=== PATIENT | female | born 1955 | race African-American/Black ===

== ENCOUNTER → 2016-05-10 | Outpatient (CLI) | payer BC ==
[2016-05-10 10:11] LABS: ABSOLUTE EOSINOPHILS # (AUTO) 0.1 10^3/uL (0.0-0.6); ABSOLUTE LYMPHOCYTES (AUTO) 2.5 10^3/uL (0.5-4.7); ABSOLUTE MONOCYTES (AUTO) 0.9 10^3/uL (0.1-1.4); ABSOLUTE NEUT (AUTO) 4.8 10^3/uL (1.7-8.2); BASOPHILS % (AUTO) 0.6 % (0-2); EOSINOPHILS % (AUTO) 1.3 % (0-6); HEMATOCRIT 39.2 % (36.0-47.0); HEMOGLOBIN 13.1 g/dL (12.0-15.5); HGB HCT DIFFERENCE 0.1; MEAN CORPUSCULAR HEMOGLOBIN 27.4 pg (27.0-33.4); MEAN CORPUSCULAR HGB CONC 33.5 g/dL (32.0-36.0); MEAN CORPUSCULAR VOLUME 82 fl (80-97); MONOCYTES % (AUTO) 10.9 % (3-13); RED CELL DISTRIBUTION WIDTH 16.4 % (11.5-14.0); SEGMENTED NEUTROPHILS % (AUTO) 57.2 % (42-78); WHITE BLOOD COUNT 8.4 10^3/uL (4.0-10.5)
[2016-05-10 10:17] LABS: APPEARANCE,URINE SLIGHTLY-CLOUDY; BILIRUBIN,URINE NEGATIVE (NEGATIVE); GLUCOSE, URINE NEGATIVE (NEGATIVE); KETONES,URINE NEGATIVE (NEGATIVE); LEUKOCYTE ESTERASE,URINE NEGATIVE (NEGATIVE); NITRITE,URINE NEGATIVE (NEGATIVE); PROTEIN,URINE 30 mg/dL (NEGATIVE); URINE SPECIFIC GRAVITY 1.013; UROBILINOGEN,URINE NEGATIVE mg/dL (<2.0)
[2016-05-10 10:33] LABS: ALBUMIN 3.8 g/dL (3.5-5.0); ANION GAP 11 (5-19); BLOOD UREA NITROGEN 33 mg/dL (7-20); CALCIUM 9.6 mg/dL (8.4-10.2); CARBON DIOXIDE 30 mmol/L (22-30); CHLORIDE 102 mmol/L (98-107); CREATININE RESULT 1.69 mg/dL (0.52-1.25); GLUCOSE 94 mg/dL (75-110); POTASSIUM 4.6 mmol/L (3.6-5.0); SODIUM 142.7 mmol/L (137-145)
[2016-05-11 07:32] LABS: VITAMIN D 25-HYDROXY 46.1 ng/mL (30.0-100.0)
== END ==
LOC: OD 08:42
PROVIDERS: ATTEND Internal Medicine Nephrology
DX: N18.3 Chronic kidney disease, stage 3 (moderate) (principal); R80.9 Proteinuria, unspecified; E55.9 Vitamin D deficiency, unspecified
CPT/HCPCS: 36415; 80048; 81001; 82040; 82306; 83970; 84100; 85025

== ENCOUNTER → 2016-08-20 | Outpatient (CLI) | payer BC ==
[2016-08-20 09:18] LABS: ANION GAP 10 (5-19); BLOOD UREA NITROGEN 31 mg/dL (7-20); CALCIUM 10.1 mg/dL (8.4-10.2); CARBON DIOXIDE 31 mmol/L (22-30); CHLORIDE 102 mmol/L (98-107); CREATININE RESULT 1.75 mg/dL (0.52-1.25); GLUCOSE 95 mg/dL (75-110); POTASSIUM 4.5 mmol/L (3.6-5.0); SODIUM 143.1 mmol/L (137-145)
[2016-08-21 12:38] LABS: CREATININE URINE 68.5 mg/dL (Not Estab.)
== END ==
LOC: OD 08:03
PROVIDERS: ATTEND Internal Medicine Nephrology
DX: N18.3 Chronic kidney disease, stage 3 (moderate) (principal); E55.9 Vitamin D deficiency, unspecified; R80.9 Proteinuria, unspecified
CPT/HCPCS: 36415; 80048; 82306; 82570; 84156

== ENCOUNTER → 2016-11-21 | Outpatient (CLI) | payer BC ==
[2016-11-21 09:51] LABS: ANION GAP 12 (5-19); BLOOD UREA NITROGEN 31 mg/dL (7-20); CALCIUM 9.6 mg/dL (8.4-10.2); CARBON DIOXIDE 26 mmol/L (22-30); CHLORIDE 102 mmol/L (98-107); CREATININE RESULT 1.78 mg/dL (0.52-1.25); GLUCOSE 102 mg/dL (75-110); POTASSIUM 4.2 mmol/L (3.6-5.0); SODIUM 140.3 mmol/L (137-145)
[2016-11-21 13:59] LABS: URINE CREATININE 83.5 mg/dL (15-278); URINE PROTEIN 26.9 mg/dL (<12)
== END ==
LOC: OD 07:46
PROVIDERS: ATTEND Internal Medicine Nephrology
DX: N18.3 Chronic kidney disease, stage 3 (moderate) (principal); R80.9 Proteinuria, unspecified; E55.9 Vitamin D deficiency, unspecified
CPT/HCPCS: 36415; 80048; 82306; 82570; 84156

== ENCOUNTER 2017-06-08 22:09 | Observation (INO) | payer BC ==
--- NOTE | 2017-06-08 22:54 | ER Document Report ---
ED General - General Chief Complaint: Abdominal Pain Stated Complaint: STOMACH PAIN Time Seen by Provider: 06/08/17 22:53 Notes: Patient is a 61-year-old female who presents emergency department with chief complaint of sudden onset abdominal pain, nausea and vomiting after lunch today. Patient states that she ate some soup for lunch and about 30 minutes later she admits to sudden onset epigastric pain with nausea and vomiting. States that she still has her gallbladder. Denies any fevers or chills. She denies any previous similar symptoms. Past medical history significant for previous appendectomy, umbilical hernia repair, previous hysterectomy. Patient states that she does have a known left lower periumbilical hernia. She states that ever since she started throwing up that it is remained enlarged and not soft. She states that it does not hurt to touch. Past medical history significant for hypertension, hypothyroidism Past surgical history as above Social history: Denies any tobacco, alcohol or drug use PCP: Jovani TRAVEL OUTSIDE OF THE [place] IN LAST 30 DAYS: No - Related Data Allergies/Adverse Reactions: No Known Allergies Allergy (Verified 06/08/17 22:10) Past Medical History - Social History Smoking Status: Current Every Day Smoker Family History: Reviewed & Not Pertinent Patient has suicidal ideation: No Patient has homicidal ideation: No - Past Medical History Cardiac Medical History: Reports: Hx Hypertension Denies: Hx Coronary Artery Disease, Hx Heart Attack Pulmonary Medical History: Reports: Hx Pneumonia Denies: Hx Asthma, Hx Bronchitis, Hx COPD Neurological Medical History: Denies: Hx Cerebrovascular Accident, Hx Seizures Renal/ Medical History: Denies: Hx Peritoneal Dialysis Musculoskeltal Medical History: Denies Hx Arthritis Past Surgical History: Reports: Hx Appendectomy, Hx Hysterectomy. Denies: Hx Pacemaker Review of Systems - Review of Systems Constitutional: No symptoms reported Cardiovascular: No symptoms reported Respiratory: No symptoms reported Gastrointestinal: See HPI Genitourinary: No symptoms reported Musculoskeletal: No symptoms reported Neurological/Psychological: No symptoms reported -: Yes All other systems reviewed and negative Physical Exam - Vital signs Vitals: Temp Pulse Resp BP Pulse Ox 97.9 F 84 18 151/78 H 95 06/08/17 22:17 06/08/17 22:17 06/08/17 22:17 06/08/17 22:17 06/08/17 22:17 - Notes Notes: PHYSICAL EXAM GENERAL: Alert, interacts well. HEAD: Normocephalic, atraumatic. LUNGS: Clear to auscultation bilaterally, no wheezes, rales, or rhonchi. No respiratory distress. HEART: Regular rate and rhythm. No murmurs, gallops, or rubs. ABDOMEN: distended, mild epigastric tenderness. left lower periumbical hernia with active BS but nonreducible. No guarding, rebound, or rigidity..Hypoactive bowel sounds LLQ. EXTREMITIES: Moves all 4 extremities spontaneously. No edema, radial and dorsalis pedis pulses 2/4 bilaterally. No cyanosis. NEUROLOGICAL: Alert and oriented x4. Normal speech. PSYCH: Normal affect, normal mood. SKIN: Warm, dry, normal turgor. No rashes or lesions noted. Course - Re-evaluation Re-evalutation: 06/09/17 00:29 Patient is a 61-year-old female is hemodynamically stable, no acute distress and afebrile. Presentation concerning for small bowel obstruction versus incarcerated hernia. Patient states she is now pain free and nausea free after Toradol and Zofran. Acute abdomen does show concern for small bowel obstruction. Will send for CT of the abdomen and pelvis with p.o. contrast 06/09/17 04:11 Reviewed radiology results with Dr. Bedoya who states there is concern for a incarcerated hernia given that contrast was not able to pass her hernia. Will admit to surgery. Patient at this time stating that she has mild pain without nausea. 06/09/17 04:[address] Matthews for OR this AM - Vital Signs Vital signs: Temp Pulse Resp BP Pulse Ox 97.9 F 84 18 151/78 H 95 06/08/17 22:17 06/08/17 22:17 06/08/17 22:17 06/08/17 22:17 06/08/17 22:17 - Laboratory Result Diagrams: 06/08/17 23:25 06/08/17 23:25 Laboratory results interpreted by me: 06/08/17 06/08/17 06/09/17 23:25 23:25 01:00 WBC 11.0 H MCH 26.6 L RDW 16.6 H Seg Neutrophils % 78.4 H Absolute Neutrophils 8.7 H BUN 27 H Creatinine 1.70 H Est GFR ( Amer) 37 L Est GFR (Non-Af Amer) 30 L Glucose 121 H Calcium 10.5 H AST 49 H Alkaline Phosphatase 155 H Total Protein 8.3 H Urine Protein 30 H - Diagnostic Test Radiology reviewed: Image reviewed, Reports reviewed Discharge - Discharge Clinical Impression: SBO (small bowel obstruction), Hernia of abdominal cavity, with obstruction Condition: Stable Disposition: ADMITTED INPATIENT Admitting Provider: Surgicalist - Appresai Unit Admitted: Surgical Floor
[2017-06-08] MEDS ORDERED: KETOROLAC TROMETHAMINE INJ/PF 30 MG/1 ML SDV IV ONE (23:08)
[2017-06-08] MEDS ORDERED: ONDANSETRON HCL INJ/PF 4 MG/2 ML SDV IV ONE (23:08)
[2017-06-08] MEDS ORDERED: NORMAL SALINE 1000 ML 1,000 ML IV ONE (23:09)
[2017-06-08 23:39] LABS: ABSOLUTE BASOPHILS # (AUTO) 0.1 10^3/uL (0.0-0.2); ABSOLUTE LYMPHOCYTES (AUTO) 1.6 10^3/uL (0.5-4.7); ABSOLUTE MONOCYTES (AUTO) 0.7 10^3/uL (0.1-1.4); ABSOLUTE NEUT (AUTO) 8.7 10^3/uL (1.7-8.2); BASOPHILS % (AUTO) 0.7 % (0-2); EOSINOPHILS % (AUTO) 0.1 % (0-6); HEMATOCRIT 42.1 % (36.0-47.0); HEMOGLOBIN 13.9 g/dL (12.0-15.5); LYMPHOCYTES % (AUTO) 14.1 % (13-45); MEAN CORPUSCULAR HEMOGLOBIN 26.6 pg (27.0-33.4); MEAN CORPUSCULAR HGB CONC 32.9 g/dL (32.0-36.0); MEAN CORPUSCULAR VOLUME 81 fl (80-97); MONOCYTES % (AUTO) 6.7 % (3-13); PLATELET COUNT 272 10^3/uL (150-450); RED BLOOD COUNT 5.21 10^6/uL (3.72-5.28); RED CELL DISTRIBUTION WIDTH 16.6 % (11.5-14.0); SEGMENTED NEUTROPHILS % (AUTO) 78.4 % (42-78); TOTAL CELLS COUNTED % (AUTO) 100 %
[2017-06-08 23:58] LABS: ALANINE AMINOTRANSFERASE 19 U/L (9-52); ALBUMIN 4.5 g/dL (3.5-5.0); ALKALINE PHOSPHATASE 155 U/L (38-126); ANION GAP 10 (5-19); ASPARTATE AMINO TRANSFERASE 49 U/L (14-36); BILIRUBIN,DIRECT 0.3 mg/dL (0.0-0.4); BILIRUBIN,TOTAL 0.7 mg/dL (0.2-1.3); BLOOD UREA NITROGEN 27 mg/dL (7-20); CALCIUM 10.5 mg/dL (8.4-10.2); CARBON DIOXIDE 25 mmol/L (22-30); CHLORIDE 105 mmol/L (98-107); GLUCOSE 121 mg/dL (75-110); LIPASE 67.2 U/L (23-300); POTASSIUM 4.2 mmol/L (3.6-5.0); SODIUM 140.4 mmol/L (137-145); TOTAL PROTEIN 8.3 g/dL (6.3-8.2)
--- NOTE | 2017-06-09 01:09 | RADIOLOGY REPORT (SQ) ---
EXAM DESCRIPTION: ACUTE ABDOMEN SERIES COMPLETED DATE/TIME: 06/09/2017 12:58 am REASON FOR STUDY: epigastric pain COMPARISON: Chest x-ray 11/02/2014. NUMBER OF VIEWS: Three views. TECHNIQUE: Frontal chest, supine abdomen and upright/decubitus abdomen radiographic images acquired. LIMITATIONS: None. FINDINGS: CHEST: Lungs clear of infiltrates. FREE AIR: None. BOWEL GAS PATTERN: There is gaseous distension of small bowel loops with air-fluid levels. Stool and gas noted within the colon. CALCIFICATIONS: No suspicious calcifications. HARDWARE: Surgical clip noted in the right lower quadrant. SOFT TISSUES: No gross mass or suggestion of organomegaly. BONES: Degenerative changes in the spine. IMPRESSION: Gaseous distension of small bowel loops with air-fluid levels, worrisome for small bowel obstruction. TECHNICAL DOCUMENTATION: JOB ID: [id number] [place]-[id number] 2010 [employer]- All Rights Reserved
[2017-06-09 01:26] LABS: AMORPHOUS SEDIMENT,URINE TRACE /HPF; APPEARANCE,URINE SLIGHTLY-CLOUDY; BILIRUBIN,URINE NEGATIVE (NEGATIVE); COLOR,URINE YELLOW; GLUCOSE, URINE NEGATIVE (NEGATIVE); KETONES,URINE NEGATIVE (NEGATIVE); LEUKOCYTE ESTERASE,URINE NEGATIVE (NEGATIVE); NITRITE,URINE NEGATIVE (NEGATIVE); PROTEIN,URINE 30 mg/dL (NEGATIVE); URINE SPECIFIC GRAVITY 1.014; UROBILINOGEN,URINE NEGATIVE mg/dL (<2.0)
[2017-06-09] MEDS ORDERED: MORPHINE SULFATE 10 MG/ML INJ IV ONE (04:20)
--- NOTE | 2017-06-09 04:20 | RADIOLOGY REPORT (SQ) ---
EXAM DESCRIPTION: CT ABD/PELVIS ORAL ONLY COMPLETED DATE/TIME: 06/09/2017 4:01 am REASON FOR STUDY: nausea, vomiting, umbilical hernia, eval for SBO COMPARISON: Abdominal series 06/09/2017. TECHNIQUE: CT scan of the abdomen and pelvis performed with oral contrast and no intravenous contras t. Images reviewed with lung, soft tissue, and bone windows. Reconstructed coronal and sagittal MPR i mages reviewed. All images stored on PACS. All CT scanners at this facility use dose modulation, iterative reconstruction, and/or weight based d osing when appropriate to reduce radiation dose to as low as reasonably achievable (ALARA). [facility]: Dose Right [facility]: CareDose [facility]: Dose Right [facility]: Teradose 4D [facility]: [employer] RADIATION DOSE: CT Rad equipment meets quality standard of care and radiation dose reduction techniq ues were employed. CTDIvol: 19.0 mGy. DLP: 1018 mGy-cm.mGy. LIMITATIONS: None. FINDINGS: LOWER CHEST: No consolidation or pleural effusion. There is oral contrast distending the distal esophagus. NON-CONTRASTED LIVER, SPLEEN, ADRENALS: Evaluation limited by lack of IV contrast. 2.7 cm low-densit y nodule at the left adrenal gland, probably representing an adenoma. PANCREAS: No peripancreatic inflammatory changes. GALLBLADDER: No identified stones by CT criteria. No inflammatory changes to suggest cholecystitis. RIGHT KIDNEY AND URETER: No significant calcification. No hydronephrosis or hydroureter. LEFT KIDNEY AND URETER: No significant calcification. No hydronephrosis or hydroureter. AORTA AND RETROPERITONEUM: No abdominal aortic aneurysm. No retroperitoneal masses or hemorrhage. BOWEL AND PERITONEAL CAVITY: Oral contrast is seen in the stomach and proximal small bowel loops. Th e stomach is distended. There are multiple dilated small bowel loops with air-fluid levels. A trans ition point with change in caliber of small bowel loops is seen at the left paracentral ventral herni a in the lower abdomen. There is colonic diverticulosis with no CT evidence for acute diverticulitis . APPENDIX: Surgically absent. PELVIS, BLADDER, AND ABDOMINAL WALL: The urinary bladder is decompressed. The uterus is surgically a bsent. No free fluid. There is a small fat containing umbilical hernia. There is a left paracentra l ventral hernia in the midline lower abdomen containing a short segment of dilated small bowel loop. BONES: Degenerative changes in the spine. IMPRESSION: 1. Distal small bowel obstruction with a transition point at the left paracentral ventr al hernia in the lower abdomen. 2. Small fat containing umbilical hernia. 3. Colonic diverticulosis. 4. Left adrenal adenoma. 5. Oral contrast distending the distal esophagus, may be seen with gastroesophageal reflux. COMMENT: Pertinent findings on the imaging study reported as a CRITICAL RESULT to AMBER Sellers at04:07 hrs on 06/09/2017. Category of Critical Result: Distal small bowel obstruction with a transition point at the left parac entral ventral hernia in the lower abdomen. TECHNICAL DOCUMENTATION: JOB ID: [id number] Quality ID # [id number]: Final reports with documentation of one or more dose reduction techniques (e.g., Au tomated exposure control, adjustment of the mA and/or kV according to patient size, use of iterative reconstruction technique) 2010 [employer]- All Rights Reserved
[2017-06-09] MEDS ORDERED: METOCLOPRAMIDE HCL INJ/PF 10 MG/2 ML SDV IV ONE (04:31)
[2017-06-09] MEDS ORDERED: KETOROLAC TROMETHAMINE INJ/PF 30 MG/1 ML SDV ONE (07:11)
[2017-06-09] MEDS ORDERED: FENTANYL CITRATE INJ/PF 250 MCG/5 ML AMPULE ONE (07:55)
[2017-06-09] MEDS ORDERED: HYDROMORPHONE HCL INJ/PF 2 MG/ML AMPULE ONE ×2 (07:56→07:57)
[2017-06-09] MEDS ORDERED: PROPOFOL INJ 200 MG/20 ML VIAL IV ONE (07:56)
[2017-06-09] MEDS ORDERED: ONDANSETRON HCL INJ/PF 4 MG/2 ML SDV ONE (07:56)
[2017-06-09] MEDS ORDERED: ACETAMINOPHEN 100 ML IV ONE (07:56)
[2017-06-09] MEDS ORDERED: MIDAZOLAM 2 MG/2 ML INJ ONE (07:56)
[2017-06-09] MEDS ORDERED: EPHEDRINE SULFATE INJ 50 MG/1 ML AMPULE ONE (07:56)
--- NOTE | 2017-06-09 08:31 | PDOC H&P ---
History of Present Illness Admission Date/PCP: 06/09/17 04:34 Patient complains of: Irreducible left periumbilical protrusion x 2 days. Constipation x 2 days History of Present Illness: LUIS BENAVIDEZ is a 61 year old female admitted via the ER early this morning with complaints of an irreducible left periumbilical protrusion as well as constipation for 2 days. She has had the protrusion, albeit reducible for a couple of months now. She had a hysterectomy about 40 yrs ago and subsequently developed an incisional hernia that was repaired about 20 yrs ago here at [facility]. She denies any fever or significant abdominal distension at this time. Past Medical History Cardiac Medical History: Reports: Hypertension Denies: Coronary Artery Disease, Myocardial Infarction Pulmonary Medical History: Reports: Pneumonia Denies: Asthma, Bronchitis, Chronic Obstructive Pulmonary Disease (COPD) Neurological Medical History: Denies: Seizures Musculoskeltal Medical History: Denies: Arthritis Hematology: Denies: Anemia Past Surgical History Past Surgical History: Reports: Appendectomy, Hysterectomy Denies: Pacemaker Social History Smoking Status: Unknown if Ever Smoked Frequency of Alcohol Use: None Hx Recreational Drug Use: No Drugs: None Hx Prescription Drug Abuse: No - Advance Directive Resuscitation Status: Full Code Family History Family History: Reviewed & Not Pertinent Parental Family History Reviewed: No Children Family History Reviewed: Unknown Sibling(s) Family History Reviewed.: Unknown Medication/Allergy Allergies/Adverse Reactions: No Known Allergies Allergy (Verified 06/08/17 22:10) Review of Systems Constitutional: ABSENT: as per HPI, anorexia, chills, fatigue, fever(s), headache(s), night sweats, weakness, weight gain, weight loss, other Eyes: PRESENT: other - uses glasses Ears: ABSENT: as per HPI, hearing changes, other Nose, Mouth, and Throat: ABSENT: as per HPI, headache(s), mouth pain, sore throat, vertigo, other Cardiovascular: ABSENT: as per HPI, chest pain, dyspnea on exertion, edema, orthropnea, palpitations, other Respiratory: ABSENT: as per HPI, cough, dyspnea, hemoptysis, sputum, other Gastrointestinal: PRESENT: as per HPI Genitourinary: ABSENT: as per HPI, difficulty urinating, dysuria, hematuria, nocturia, other Integumentary: ABSENT: as per HPI, diaphoresis, erythema, lesions, pruritus, rash, wounds, other Neurological: ABSENT: as per HPI, abnormal gait, abnormal movements, abnormal speech, confusion, convulsions, dizziness, focal weakness, frequent falls, lack of coordination, memory loss, numbness, paresthesias, restless legs, syncope, tingling, tremor(s), vertigo, weakness, other Psychiatric: ABSENT: as per HPI, anxiety, depression, hallucinations, homidical ideation, suicidal ideation, other Endocrine: ABSENT: as per HPI, cold intolerance, flushing, heat intolerance, menstrual abnormalities, polydipsia, polyphagia, polyuria, other Physical Exam Vital Signs: Temp Pulse Resp BP Pulse Ox 98.1 F 84 18 140/71 H 95 06/09/17 06:25 06/08/17 22:17 06/09/17 05:02 06/09/17 05:02 06/09/17 05:02 Intake & Output 06/08/17 06/09/17 06/10/17 06:59 06:59 06:59 Weight 116.7 kg General appearance: PRESENT: no acute distress, morbidly obese Head exam: PRESENT: atraumatic, normocephalic Eye exam: PRESENT: conjunctiva pink, EOMI, PERRLA Ear exam: PRESENT: normal external ear exam Mouth exam: PRESENT: moist, neck supple, tongue midline Neck exam: ABSENT: carotid bruit, full ROM, JVD, lymphadenopathy, meningismus, tenderness, thyromegaly, tracheal deviation, tracheostomy, other Respiratory exam: PRESENT: clear to auscultation john, unlabored Cardiovascular exam: PRESENT: RRR, +S1, +S2 GI/Abdominal exam: PRESENT: normal bowel sounds, soft, other - midline infraumbilical surgical scar extending from the umbilicus to the symphysis pubis ; there is an 8cm spherical protrusion to the left of the midlinejust below the umbilicus, no overlying erythema, no differential warmth, only mildly tender, non reducible. Neurological exam: PRESENT: alert, awake, oriented to person, oriented to place , oriented to time, oriented to situation, CN II-XII grossly intact Results Impressions: Acute Abdomen Series 06/09/17 00:29 IMPRESSION: Gaseous distension of small bowel loops with air-fluid levels, worrisome for small bowel obstruction. Abdomen/Pelvis CT 06/09/17 01:15 IMPRESSION: 1. Distal small bowel obstruction with a transition point at the left paracentral ventral hernia in the lower abdomen. 2. Small fat containing umbilical hernia. 3. Colonic diverticulosis. 4. Left adrenal adenoma. 5. Oral contrast distending the distal esophagus, may be seen with gastroesophageal reflux. Assessment & Plan - Diagnosis (1) Hernia of abdominal cavity, with obstruction Is this a current diagnosis for this admission?: Yes Plan: The patient is admitted Keep NPO IV Fluids - NS @ 100cc/hr DVT prophylaxis - mechanical and pharmacologic The patient is scheduled for an emergent laparoscopic incarcerated ventral incisional hernia repair with mesh - Time Time Spent: 30 to 50 Minutes Critical Time spent with patient: 15-24 minutes Anticipated discharge: Home Within: within 36 hours
--- NOTE | 2017-06-09 08:35 | EKG REPORT ---
SEVERITY:- BORDERLINE ECG - SINUS RHYTHM PROBABLE LEFT ATRIAL ABNORMALITY : Confirmed by: Christian Melendez MD 09-Jun-2017 08:34:36
[2017-06-09] MEDS ORDERED: BUPIVACAINE HCL 0.25 % INJ/PF (2.5 MG/1 ML) 30 ML VIAL ONE (08:47)
[2017-06-09] MEDS ORDERED: CEFAZOLIN INJ 1 GM VIAL ONE (08:47)
[2017-06-09] MEDS ORDERED: LIDOCAINE 1% INJ-PF (10 MG/ML) 30 ML SDV ONE (08:47)
[2017-06-09] MEDS ORDERED: PROMETHAZINE HCL INJ 25 MG/1 ML VIAL IV PRN (08:56)
[2017-06-09] MEDS ORDERED: DIPHENHYDRAMINE HCL 50 MG/ML VIAL IV PRN (08:56)
[2017-06-09] MEDS ORDERED: FENTANYL CITRATE INJ/PF 100 MCG/2 ML AMPUL IV PRN ×3 (08:56)
[2017-06-09] MEDS ORDERED: MEPERIDINE HCL/PF INJ 25 MG/1 ML DISP.SYRIN IV PRN (08:56)
[2017-06-09] MEDS ORDERED: RINGERS SOLUTION,LACTATED 1,000 ML IV PRN (08:58)
[2017-06-09] MEDS ORDERED: SUCCINYLCHOLINE CHLORIDE INJ 200 MG/10 ML VIAL ONE (10:02)
[2017-06-09] MEDS ORDERED: ROCURONIUM BROMIDE INJ 50 MG/5 ML VIAL IV ONE (10:02)
[2017-06-09] MEDS ORDERED: GLYCOPYRROLATE INJ 0.4 MG/2 ML VIAL ONE (10:02)
[2017-06-09] MEDS ORDERED: NEOSTIGMINE METHYLSULFATE 10 MG/10 ML VIAL ONE (10:02)
[2017-06-09] MEDS ORDERED: OXYCODONE-ACETAMINOPHEN 5-325 MG TABLET PO PRN (12:00)
[2017-06-09] MEDS ORDERED: FENTANYL CITRATE INJ/PF 100 MCG/2 ML AMPUL ONE (12:24)
--- NOTE | 2017-06-09 13:02 | Operative Report ---
Operative Report DATE OF SURGERY: 06/09/17 PREOPERATIVE DIAGNOSIS: Incarcerated Recurrent Ventral incisional hernia POSTOPERATIVE DIAGNOSIS: Incarcerated Recurrent Ventral incisional hernia OPERATION: Laparoscopic Repair of Incarcerated Recurrent Ventral incisional hernia with parietex mesh using the intraperitoneal onlay mesh technique. SURGEON: Cheli Magana ANESTHESIA: GA TISSUE REMOVED OR ALTERED: None COMPLICATIONS: None ESTIMATED BLOOD LOSS: 20 ml INTRAOPERATIVE FINDINGS: 1. 8cm spherical swelling in the left infraumbilical area, nonreducible;. 2. midline surgical scar from umbilicus to symphysis pubis. 3. french cheese defect involving the midline incision with omentum through three defects and bowel as well omentum through one defect (the most inferior). 4. Bowel with clotted blood stuck to it but no evidence of bowel ischemia PROCEDURE: The patient was brought to the operating room and placed on the operating table. General endotracheal anesthesia was administered and she was positioned supine on the table. A Blevins catheter was placed and the abdomen prepped with chloraprep. A time out was done. Sterile drapes were laid to expose the abdomen. Under sterile aseptic conditions, a Verres needle was introduced into the peritoneal at Angulo's point in the left subcostal area. Pneumoperitoneum was insufflated to 15 mmHg. Access to the peritoneal cavity was then gained using the optical bladeless trocar technique with a 10mm at the left midflank. Adhesions were bluntly taken down with the laparoscope. Initially, two additional ports were placed, one in the left upper quadrant and the other in the left lower quadrant, subsequently three right sided ports were placed as well in the right midflank, upper and lower quadrants, all 5mm ports. The herniated omentum and bowel were painstakingly and carefully reduced using atraumatic bowel graspers using traction. The very tight hernia defects had to be slightly enlarged with the hook laparoscopic monopolar electrosurgical unit with care to avoid bowel injury. Following eventual full reduction of the bowel and omentum the bowel was carefully inspected and the clotted blood on the herniated loop, which was initially thought to be ischemic bowel, was cleaned off of the bowel revealing healthy bowel (please see accompanying pictures). The largest of the french-cheese defects, the most inferior which had bowel and omentum, was closed with a 0-vicryl stitch. The entire hernia defect was measured out and a round 15cm Parietex mesh selected for closure of the defects. The mesh was tagged with 0-prolene at the superior and inferior margins and 2-nylon at the right and left lateral margins and then introduced into the peritoneal cavity. The stitches were exteriorized as anchoring stitches and the mesh anchored to the anterior abdominal wall with Absorbatacks. The mesh was observed to be well-placed with adequate coverage of the hernia margins (> 3cm overlap). The 10mm port site fascial layer was closed with 0-prolene using the endoclosure device. The pneumoperitoneum was desufflated all the ports were removed and the skin incisions closed with 4-0 monocryl subcuticular stitches. The wounds were infiltrated with local anesthesia, a 1:1 mixture of 1% lidocaine and 0.25% bupivacaine, a total of 24ml , they were cleaned and dressed with dermabond. The patient tolerated the procedure well, she was extubated in the operating room and taken to the PACU in stable condition.
--- NOTE | 2017-06-09 13:53 | PDOC DISCHARGE SUMMARY ---
Discharge Summary (SDC) - Discharge Final Diagnosis: Incarcerated recurrent ventral incisional hernia Date of Surgery: 06/09/17 Discharge Date: 06/09/17 Condition: Stable Treatment or Instructions: Use abdominal binder at all times x 4 weeks except during bath ok to shower beginning tomorrow evening No tub baths or swimming x 3 weeks No heavy lifting > 10 lbs x 6 weeks F/U in [facility] x 1 week Discharge Diet: Full Liquids, Other (Comments) - advance as tolerated to regular diet Respiratory Treatments at Home: Incentive Spirometer Discharge Activity: No Lifting Over 10 Pounds, No Lifting/Push/Pulling, Slowly Increase Activity, No tub bath, Walk Frequently Home Care Assistance: Provided by Family Report the Following to Your Physician Immediately: Vomiting, Increase in Pain, Swelling, Drainage-Yellow, Drainage-Green, Drainage-Foul Smelling
[2017-06-09] MEDS: DOCUSATE SODIUM 100 MG CAPSULE PO SCH (17:22)
[2017-06-10] MEDS ORDERED: LEVOTHYROXINE SODIUM 0.025 MG TABLET PO SCH (06:00)
[2017-06-10] MEDS ORDERED: LEVOTHYROXINE SODIUM 0.112 MG TABLET PO SCH (06:00)
--- NOTE | 2017-06-10 08:54 | Physician Advisory Note ---
Physician Advisor ProgressNote .: [facility], I have reviewed the medical record for this patient. Physician Advisor Statement: Please consider documenting, if you agree, in DCSummary: 1. "SBO due to incarcerated hernia" 2. "obesity with BMI 42.8" 3. "acute urinary retention, causing delay in d/c" 4. If pt not safe for d/c today, please document the clinical reasons/concerns , and may consider change to Inpatient status. Thanks, CK
[2017-06-10] MEDS ORDERED: (PENDING PHARMACY ID) (Levothyroxine Sodium [Synthroid] 137 MCG) PO SCH (10:00)
[2017-06-10] MEDS ORDERED: AMLODIPINE BESYLATE 10 MG TABLET PO SCH (10:00)
[2017-06-10] MEDS ORDERED: LOSARTAN POTASSIUM 50 MG TABLET PO SCH (10:00)
[2017-06-10] MEDS ORDERED: ENOXAPARIN SODIUM INJ 40 MG/0.4 ML DISP.SYRIN SUBCUT SCH (10:00)
[2017-06-10] MEDS ORDERED: (PENDING PHARMACY ID) (Losartan/Hydrochlorothiazide [Losartan-Hctz 100-25 Mg Tab] 1 EACH) PO SCH (10:00)
[2017-06-10] MEDS ORDERED: HYDROCHLOROTHIAZIDE 25 MG TABLET PO SCH (10:00)
[2017-06-10] MEDS: DOCUSATE SODIUM 100 MG CAPSULE PO SCH (11:13)
[2017-06-10 13:31] VITALS: BP 121/66
--- NOTE | 2017-06-11 11:56 | PDOC DISCHARGE SUMMARY ---
General - Admit/Disc Date/PCP Admission Date/Primary Care Provider: 06/09/17 04:34 Discharge Date: 06/10/17 - Discharge Diagnosis (1) Hernia of abdominal cavity, with obstruction Is this a current diagnosis for this admission?: Yes - Additional Information Resuscitation Status: Full Code Discharge Diet: Full Liquids, Other (Comments) Discharge Activity: No Lifting Over 10 Pounds, No Lifting/Push/Pulling, Slowly Increase Activity, No tub bath, Walk Frequently Home Medications: Amlodipine Besylate [Norvasc 10 mg Tablet] 10 mg PO DAILY 06/09/17 Amlodipine Besylate [Norvasc 10 mg Tablet] 10 mg PO DAILY tablet 06/09/17 Docusate Sodium [Colace 100 mg Capsule] 100 mg PO BID #0 capsule 06/09/17 Hydrochlorothiazide [Hydrodiuril 25 mg Tablet] 25 mg PO DAILY tablet 06/09/17 Levothyroxine Sodium [Synthroid 0.025 mg Tablet] 0.025 mg PO Q6AM tablet Levothyroxine Sodium [Synthroid] 137 mcg PO DAILY 06/09/17 Losartan Potassium [Cozaar 50 mg Tablet] 100 mg PO DAILY tablet 06/09/17 Losartan/Hydrochlorothiazide [Losartan-Hctz 100-25 mg Tab] 1 each PO DAILY 06/09 History of Present Illness History of Present Illness: LUIS BENAVIDEZ is a 61 year old female admitted via the ER early this morning with complaints of an irreducible left periumbilical protrusion as well as constipation for 2 days. She has had the protrusion, albeit reducible for a couple of months now. She had a hysterectomy about 40 yrs ago and subsequently developed an incisional hernia that was repaired about 20 yrs ago here at [facility]. She denies any fever or significant abdominal distension at this time. Hospital Course Hospital Course: The patient had a laparoscopic ventral hernia repair with 15cm round Parietex mesh, held with transfascial sutures and absorbatacks. She did not urinate on the op day and so stayed overnight by the next morning she had passed urine and was discharged home. She otherwise had no issues - tolerating a regular diet, pain well controlled, no nausea or vomiting. Physical Exam Vital Signs: Temp Pulse Resp BP Pulse Ox 99.0 F 86 18 121/66 100 06/10/17 13:29 06/10/17 13:29 06/10/17 13:29 06/10/17 13:29 06/10/17 13:29 Intake & Output 06/10/17 06/11/17 06/12/17 06:59 06:59 06:59 Intake Total 2537 Output Total 1185 Balance 1352 Weight 116.7 kg General appearance: PRESENT: no acute distress Head exam: PRESENT: atraumatic, normocephalic Eye exam: PRESENT: conjunctiva pink, EOMI, PERRLA. ABSENT: scleral icterus Ear exam: PRESENT: normal external ear exam Neck exam: ABSENT: carotid bruit, JVD, lymphadenopathy, thyromegaly Respiratory exam: PRESENT: clear to auscultation john. ABSENT: rales, rhonchi, wheezes Cardiovascular exam: PRESENT: RRR. ABSENT: diastolic murmur, rubs, systolic murmur GI/Abdominal exam: PRESENT: normal bowel sounds, soft, other - incisions are clean, dry, intact. ABSENT: distended, guarding, mass, organolmegaly, rebound, tenderness Extremities exam: PRESENT: full ROM. ABSENT: calf tenderness, clubbing, pedal edema Musculoskeletal exam: PRESENT: ambulatory Neurological exam: PRESENT: alert, awake, oriented to person, oriented to place , oriented to time, oriented to situation, CN II-XII grossly intact. ABSENT: motor sensory deficit Psychiatric exam: PRESENT: appropriate affect, normal mood. ABSENT: homicidal ideation, suicidal ideation Results Impressions: Acute Abdomen Series 06/09/17 00:29 IMPRESSION: Gaseous distension of small bowel loops with air-fluid levels, worrisome for small bowel obstruction. Abdomen/Pelvis CT 06/09/17 01:15 IMPRESSION: 1. Distal small bowel obstruction with a transition point at the left paracentral ventral hernia in the lower abdomen. 2. Small fat containing umbilical hernia. 3. Colonic diverticulosis. 4. Left adrenal adenoma. 5. Oral contrast distending the distal esophagus, may be seen with gastroesophageal reflux. Plan Discharge Plan: ok to shower in 12 hrs. no tub baths or swimming x 3 weeks No heavy lifting > 10 lbs x 6 weeks. F/U in [facility] x 1 week. Ok to take regular diet. Percocet 5/325 1 tab po q6hr prn for pain Colace 100 mg po BID #40 Time Spent: Less than 30 Minutes
== END 2017-06-10 13:52 | disposition home or self-care (01) ==
LOC: ER 22:09 → INTOOBSV 06-09 04:34 → EH 06-09 04:34 → 2S 06-09 06:51
PROVIDERS: ATTEND Surgery
PROC: 0WUF4JZ Supplement Abdominal Wall with Synthetic Substitute, Percutaneous Endoscopic Approach (ICD-10-PCS; principal; 2017-06-09 08:00)
DX: K43.0 Incisional hernia with obstruction, without gangrene (principal); F17.200 Nicotine dependence, unspecified, uncomplicated; Z90.710 Acquired absence of both cervix and uterus; Z79.899 Other long term (current) drug therapy; Z98.890 Other specified postprocedural states; Z90.49 Acquired absence of other specified parts of digestive tract
CPT/HCPCS: 93005; 99285; 96361; 96374; 96375; 36415; 83690; 85025; 80053; 81001; 74022; 74176; 93010; 49657; G0378 ×2; C1781; J2250; J0690; J3490 ×2; J3010 ×2; J1885; J2765; J2270; J1650; J1170; J0330; J2405 ×2; J7030; J7120; J2704; J0131; 752

== ENCOUNTER 2018-09-15 13:30 | Emergency (ER) | payer OTHER, BC ==
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
[2018-09-15] MEDS ORDERED: ACETAMINOPHEN 325 MG TABLET PO ONE (14:54)
[2018-09-15] MEDS ORDERED: IBUPROFEN 600 MG TABLET PO ONE (14:54)
[2018-09-15 15:16] VITALS: BP 184/75
== END 2018-09-15 15:19 | disposition home or self-care (01) ==
LOC: ER 13:30
DX: S80.02XA Contusion of left knee, initial encounter (principal); M25.562 Pain in left knee; V49.40XA Driver injured in collision with unspecified motor vehicles in traffic accident, initial encounter; I10 Essential (primary) hypertension
CPT/HCPCS: 99283

== ENCOUNTER → 2020-01-28 | Outpatient (CLI) | payer MEDICARE ==
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
== END ==
LOC: OD 11:43
PROVIDERS: ATTEND Family Medicine
DX: M25.561 Pain in right knee (principal); M51.16 Intervertebral disc disorders with radiculopathy, lumbar region
CPT/HCPCS: 72110

== ENCOUNTER → 2020-02-04 | Outpatient (CLI) | payer MEDICARE ==
--- NOTE | 2020-02-04 15:28 | WOMENS IMAGING REPORT ---
EXAM DESCRIPTION: 3D SCREENING MAMMO BILAT IMAGES COMPLETED DATE/TIME: 02/04/2020 12:07 pm REASON FOR STUDY: Z12.31 ENCNTR SCREEN MAMMOGRAM FOR MALIGNANT NEOPLASM OF BREAST Z12.31 ENCNTR SCR EEN MAMMOGRAM FOR MALIGNANT NEOPLASM OF NIRANJAN COMPARISON: 09/02/2018, 03/16/2015, 08/02/2016, 08/05/2017 EXAM PARAMETERS: Views: Standard craniocaudal and mediolateral oblique views of each breast recorded using digital acquisition and breast tomosynthesis. Read with the assistance of CAD. .[facility] - [employer] Machine Operator Version 9.2 LIMITATIONS: None. FINDINGS: No suspicious masses, suspicious calcifications or architectural distortion. No areas of c oncern. IMPRESSION: NEGATIVE MAMMOGRAM. BIRADS 1. BREAST DENSITY: b. There are scattered areas of fibroglandular density. BIRAD: ASSESSMENT: 1 NEGATIVE RECOMMENDATION: ROUTINE SCREENING COMMENT: The patient has been notified of the results by letter per SA requirements. Additional no tification policies are in place for contacting patient with suspicious or incomplete findings. Quality ID #[id number]: The [employer] recommends an annual screening mammogram for women aged 40 years or over. This facility utilizes a reminder system to ensure that all patients receive reminder letters, and/or direct phone calls for appointments. This includes reminders for routine scr eening mammograms, diagnostic mammograms, or other Breast Imaging Interventions when appropriate. Th is patient will be placed in the appropriate reminder system. TECHNICAL DOCUMENTATION: FINDING NUMBER: (1) ASSESSMENT: (1) JOB ID: [id number] 2010 [facility]- All Rights Reserved Reading location - IP/workstation name: [email or web address]
== END ==
LOC: WI 11:48
PROVIDERS: ATTEND Family Medicine
DX: Z12.31 Encounter for screening mammogram for malignant neoplasm of breast (principal)
CPT/HCPCS: 77063; 77067